=== PATIENT | female | born 1950 | race Caucasian/White ===

== ENCOUNTER 2020-05-14 15:45 | Emergency (ER) | payer BC, OTHER ==
--- OUTSIDE RECORDS SUMMARY | 2020-05-14 15:47 | XMS REPORT | Clinical Summary ---
:1950 Author Organization [facility] Address [address] [place] [address] Care Team Providers Name Role Phone Stan Pruitt MD Primary Care Provider Allergies Active Allergy Reactions Severity Noted Date Comments Codeine Phosphate GI Intolerance 07/17/2011 Hydrocodone Itching 05/26/2018 Medications Medication Sig Dispensed Refills Start Date End Date Status escitalopram Take 20 mg 0 Active (LEXAPRO) 20 MG by mouth tablet daily. multivitamin with Take 1 0 Ac tive minerals tablet tablet by mouth nightly. pravastatin Take 20 mg 0 Active (PRAVACHOL) 20 MG by mouth tablet nightly. cholecalciferol, Take 1,000 0 Ac tive vitamin D3, Units by (VITAMIN D3) 1,000 mouth unit tablet nightly. clorazepate Take 3.75 mg 0 Activ e (TRANXENE) 3.75 MG by mouth as tablet needed. losartan-hydrochlo Take 1 0 01/04/2017 Active rothiazide tablet by (HYZAAR) 50-12.5 mouth daily. mg per tablet UNABLE TO FIND Turmeric-Cur 0 Ac tive cumin one tablet at night naproxen Take 220 mg 0 Active (NAPROSYN) 250 MG by mouth as tablet needed for mild pain. calcium carbonate Take by 0 Ac tive (CALCIUM 500 ORAL) mouth. aspirin 325 MG Take 325 mg 0 Act trae tablet by mouth as needed. buPROPion XL Take 1 30 tablet 3 09/22/2019 Discon tinued (WELLBUTRIN XL) tablet (150 0 (N on-compliance) 150 MG 24 hr mg total) by tabletIndications: mouth daily. Moderate episode of recurrent major depressive disorder (HCC) Active Problems Problem Noted Date Anxiety 05/26/2018 Balance problem 05/26/2018 Clumsiness 05/26/2018 Facial pain 05/26/2018 Heart murmur 05/26/2018 Burning or Tingling in arms 05/26/2018 History of rheumatic fever 05/26/2018 Difficulty swallowing 05/26/2018 Weakness in left arm 05/26/2018 History of thyroid disorder 05/26/2018 Encounters Date Type Specialty Care Team Description 01/07/2020 Telephone Consult Neurology Ludwin Cuevas Mixed anxiety and depressive disorder (Primary Dx); MD Ginny DARRIUS (obstructiv e sleep apnea); PLMD (periodic limb movement disorder); Multifactorial cognitive dysfunction 01/07/2020 Travel 12/29/2019 Travel 09/22/2019 Office Visit Neurology Ludwin Cuevas Moderate e pisode of recurrent major depressive disorder (HCC) (Primary Dx); MD Ginny Anxiety disorde r, unspecified type; DARRIUS (obstructiv e sleep apnea); PLMD (periodic limb movement disorder); Multifactorial cognitive dysfunction; Multifactorial gait disorder; Peripheral poly neuropathy; Physical decond itioning after 05/14/2019 Surgical History Surgery Date Site/Laterality Comments HAND SURGERY TONSILLECTOMY AND 08/05/1953 - ADENOIDECTOMY 08/04/1954 TUBAL LIGATION 08/05/1978 - 08/04/1979 BASAL CELL CARCINOMA EXCISION 08/05/2003 - on back 08/04/2004 MASTECTOMY 08/05/2008 - Bilateral Carcinoma in Sit u 08/04/2009 (left breast ) REPLACEMENT TOTAL KNEE Right FLEXIBLE SIGMOIDOSCOPY CHOLECYSTECTOMY 08/05/1999 - 08/04/2000 COLONOSCOPY 2005 hyperplastic, 2011 hyperplastic, 2018 Medical History Medical History Date Comments Osteoarthritis Hypertension Depression Anxiety Hyperlipidemia Stage IA ([id number]) ER+ breast cancer le ft breast diagnosed in 2007 (status post bilateral mastectomy) Chronic neck and back pain History of rheumatic fever as a child PLMD (periodic limb movement disorder) Diverticulosis Fatty liver DARRIUS (obstructive sleep apnea) CPAP CAD (coronary artery disease) Murmur and beginning of hardening of arteries Alcohol consumption binge drinking (now improved) Family History Medical History Relation Name Comments Colon polyps Father Dad Pancreatic cancer Father Dad Passed 2009 Aneurysm Maternal Aunt Stroke Maternal Aunt Down syndrome Maternal Aunt Seizures Maternal Aunt Breast cancer Maternal Grandmother Stroke Maternal Grandmother Atrial fibrillation Mother Dementia Mother age at 82 Depression Mother Migraines Mother Stroke Mother Alzheimer's disease Paternal Aunt Dementia Paternal Aunt Breast cancer Paternal Grandmother Grandmother 194 Alzheimer's disease Paternal Uncle Alzheimer's disease Paternal Uncle Diabetes Son early onset Relation Name Status Comments Father Dad Maternal Aunt Maternal Aunt Maternal Grandmother Mother Paternal Aunt Paternal Aunt Paternal Grandfather Paternal Grandmother Grandmother Paternal Uncle Paternal Uncle Son Alive Social History Tobacco Use Types Packs/Day Years Used Date Former Smoker 1.5 25 12/28/1975 - 0 03/05/2001 Smokeless Tobacco: Never Used Tobacco Cessation: Counseling Given: No Comments: 1 1/2 PPD for 25 yrs Alcohol Use Drinks/Week oz/Week Comments Not Currently Tendency to primitivo e drink Sex Assigned at Date Recorded Female 10/27/2018 12:14 PM CDT Last Filed Vital Signs Vital Sign Reading Time Taken Comments Blood Pressure 113/74 09/22/2019 9:07 AM [employer] Pulse 62 09/22/2019 9:07 AM [employer] Temperature - - Respiratory Rate - - Oxygen Saturation - - Inhaled Oxygen Concentration - - Weight 90.7 kg (200 lb) 01/06/2020 2:37 PM CDT Height 170.2 cm (5' 7") 01/06/2020 2:37 PM CDT Body Mass Index 31.32 01/06/2020 2:37 PM CDT Plan of Treatment Health Maintenance Due Date Last Done Comments BREAST CANCER SCREENING 2000 COLONOSCOPY SCREENING 2000 65+ PNEUMOCOCCAL VACCINE (1 of 1 - PPSV23) 10/10/2015 SHINGLES VACCINES (#2) 01/21/2017 11/21/2016 INFLUENZA VACCINE 03/05/2020 08/31/2017 Results Not on fileafter 05/14/2019 Insurance Payer Benefit Plan / Subscriber ID Effective Dates Phone Addre ss Type Group HUMANA MEDICARE HUMANA MEDICARE [id number] 2016-Present PPO PPO/PFFS/ERS MCR Advance Directives For more information, please contact: [phone] Type Date Recorded 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
--- OUTSIDE RECORDS SUMMARY | 2020-05-14 15:48 | XMS REPORT | Continuity of Care Document ---
:1950 Author Organization [facility] t Address [address] [place] [address] Care Team Providers Name Role Phone Sparkle MACKAY, L. Primary Care Physician Mason MACKAY, Ginny Attending Clinician SPARKLE Attending Clinician Unavailable HEMA Attending Clinician Unavailable Payers Payer Name Policy Type Policy Effective Date Expiration Date [facility] ce Number HUMANA [id number] 2016 [place] MEDICAREHUMANA 00:00:00 [place] MEDICARE PPO/PFFS/ERS [id number] 2016 -PresentPPO Problems Condition Condition Condition Status Onset Resolution Last Treating Co mments Source Name Details Category Date Date Treatment Clinician Date Anxiety Anxiety Disease Active 2017-08 [place] 0-22 Methodi 00:00: st 00 Balance Balance Disease Active 2017-08 [place] problem problem 0-22 Methodi 00:00: st 00 Clumsiness Clumsiness Disease Active 2018 [place] 0-22 Methodi 00:00: st 00 Facial Facial Disease Active 2017-08 [place] pain pain 0-22 Methodi 00:00: st 00 Heart Heart Disease Active 2017-08 [place] murmur murmur 0-22 Methodi 00:00: st 00 Burning or Burning or Disease Active 2017-08 [place] Tingling Tingling 0-22 Method i in arms in arms 00:00: st 00 History of History of Disease Active 2018- [place] rheumatic rheumatic 0-22 Meth letty fever fever 00:00: st 00 Difficulty Difficulty Disease Active 2017-08 [place] swallowing swallowing 0-22 Me thodi 00:00: st 00 Weakness Weakness Disease Active 2017-08 [place] on in left in left 0-22 Methodi arm arm 00:00: st 00 History of History of Disease Active 2018- [place] thyroid thyroid 0-22 Methodi disorder disorder 00:00: st 00 History of History of Problem Resolve Univers Bilateral Bilateral d ity of malignant malignant [place] neoplasm neoplasm Physic i of breast of breast ans in female, in female, unspecifie unspecifie d site of d site of breast breast Acute pain Acute pain Problem Active U nivers of right of right ity of knee knee [place] Physici ans Obesity Obesity Problem Active Univers due to due to ity of excess excess [place] calories, calories, Phys ici unspecifie unspecifie an s d obesity d obesity severity severity Hyperlipid Hyperlipid Problem Active U nivers emia emia ity of [place] Physici ans Essential Essential Problem Active Uni vers hypertensi hypertensi it y of on, on, [place] hypertensi hypertensi Ph ysici on with on with ans unspecifie unspecifie d goal d goal Depressed Depressed Problem Active Uni vers ity of [place] Physici ans Fatigue Fatigue Problem Active Univers ity of [place] Physici ans Low Low Problem Active Univers vitamin D vitamin D ity of level level [place] Physici ans Hypertensi Hypertensi Problem Active U nivers on on ity of [place] Physici ans Aftercare Aftercare Problem Active Uni vers following following ity of right knee right knee [place] [facility] Physici replacemen replacemen an s t surgery t surgery Status Status Problem Active Univers post total post total it y of right knee right knee [place] replacemen replacemen Ph ysici t using t using ans cement cement History of History of Problem Resolve Univers hyperlipid hyperlipid d it y of emia emia [place] Physici ans History of History of Problem Resolve Univers sleep sleep d ity of apnea apnea [place] Physici ans Primary Primary Problem Active Univers osteoarthr osteoarthr it y of itis of itis of [place] both knees both knees Ph ysici ans Greater Greater Problem Active Univers trochanter trochanter it y of ic ic [place] bursitis bursitis Physic i of left of left ans hip hip Hyperglyce Hyperglyce Problem Active U nivers 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 of [place] Physici ans History of History of Problem Active U nivers cigarette cigarette ity of smoking smoking [place] Physici ans UTI UTI Problem Active Univers (urinary (urinary ity of tract tract [place] infection) infection) Ph ysici ans Pain in Pain in Problem Active Univers the the ity of abdomen abdomen [place] Physici ans Allergy Allergy Problem Active Univers ity of [place] Physici ans Abdominal Abdominal Problem Active Uni vers fullness fullness ity of [place] Physici ans History of History of Problem Active U nivers breast breast ity of cancer cancer [place] Physici ans Former Former Problem Active Univers smoker smoker ity of [place] Physici ans Allergies, Adverse Reactions, Alerts Allergy Allergy Status Severity Reaction(s) Onset Inactive Treating Comm ents Source Name Type Date Date Clinician Hydrocod Propensi Active Itching 2017-08 [place] on one ty to 0-22 Methodi adverse 00:00: st reaction 00 s to drug Codeine Propensi Active GI 2010-08 [place] Phosphat ty to Intolerance 2-13 Met hodi e adverse 00:00: st reaction 00 s to drug Family History Family Member Diagnosis Comments Start Date Stop Date Source Mother Family history of Univers ity of Essential [place] Physicia ns hypertension, hypertension with unspecified goal Mother Family history of Univers ity of Other hyperlipidemia [place] Physicians Mother Family history of Univers ity of depression [place] Physicia ns Mother Family history of Univers ity of Stroke of unknown [place] P hysicians cause Father Family history of Univers ity of Essential [place] Physicia ns hypertension, hypertension with unspecified goal Father Family history of Univers ity of arthritis [place] Physicia ns Father Family history of Univers ity of malignant neoplasm [place] Physicians Natural father Colon polyps Prateek [place] Natural father Pancreatic cancer Rudy stodustin [place] Maternal aunt Aneurysm Prateek [place] Maternal aunt Stroke Prateek [place] Maternal aunt Down syndrome Prateek [place] Maternal aunt Seizures Prateek [place] Maternal Breast cancer Prateek grandmother [place] Maternal Stroke Prateek grandmother [place] Natural mother Atrial fibrillation H [place] Natural mother Dementia Prateek [place] Natural mother Depression Prateek [place] Natural mother Migraines Prateek [place] Natural mother Stroke Prateek [place] Paternal aunt Alzheimer's disease Ho abbie [place] Paternal aunt Dementia Prateek [place] Paternal Breast cancer Prateek grandmother [place] Paternal uncle Alzheimer's disease H hayder [place] Natural son Diabetes Prateek [place] Social History Social Habit Start Date Stop Date Quantity Comments Source Sex Assigned At [facility] ethodist Cigarettes smoked 2020-01-06 2020-01-06 Prateek Kuo current (pack per 00:00:00 00:00:00 day) - Reported Cigarette 2020-01-06 2020-01-06 Prateek Dillard ist pack-years 00:00:00 00:00:00 Tobacco use and 2020-01-06 2020-01-06 Never used Prateek Sandoval ethodist exposure 00:00:00 00:00:00 Alcohol intake 2020-01-06 2020-01-06 Ex-drinker Prateek Brooks thodist 00:00:00 00:00:00 (finding) Alcohol Comment 2019-03-16 2019-03-16 Tendency to Prateek [place] 00:00:00 00:00:00 binge drink Tobacco Comment 2018-05-26 2018-05-26 1 1/ PPD for 25 Rudy leong [place] 00:00:00 00:00:00 yrs History of tobacco 1975-12-28 2001-03-05 Current smoker Alejo leiva [place] use 00:00:00 00:00:00 Smoking Status Start Date Stop Date Source Current every day [facility] smoker Physicians Former smoker 2020-01-06 00:00:00 2020-01-06 00:00:00 Prateek Kuo Medications Ordered Filled Start Stop Current Ordering Indication Dosage Frequency Signature Comments Components Source Medication Medication Date Date Medication? Clinician (SIG) Name Name aspirin 325 2020-0 Yes 325mg Take 325 [place] MG tablet 6-03 mg by Methodi 14:42: mouth as st 41 needed. escitalopra 2020-0 Yes 20mg QD Take 20 mg Prateek sandoval (LEXAPRO) 6-03 by mouth Meth letty 20 MG 14:42: daily. st tablet 00 multivitami 2020-0 Yes 1{tbl} QD Take 1 Alejo leiva n with 6-03 tablet by Methodi minerals 14:42: mouth st tablet 00 nightly. pravastatin 2020-0 Yes 20mg QD Take 20 mg Chandra (PRAVACHOL) 6-03 by mouth Meth letty 20 MG 14:42: nightly. st tablet 00 cholecalcif 2020-0 Yes 1000U QD Take 1,000 Chandra shai, 6-03 Units by Methodi vitamin D3, 14:42: mouth st (VITAMIN 00 nightly. D3) 1,000 unit tablet clorazepate 2020-0 Yes 3.75mg Take 3.75 Chandra (TRANXENE) 6-03 mg by Methodi 3.75 MG 14:42: mouth as st tablet 00 needed. UNABLE TO 2020-0 Yes Turmeric-C [place] FIND 6-03 urcumin Methodi 14:42: one tablet st 00 at night naproxen Yes 220mg Take 220 [place] (NAPROSYN) 6-03 mg by Methodi 250 MG 14:42: mouth as st tablet 00 needed for mild pain. calcium Yes Take by Chandra carbonate 6-03 mouth. 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 ([facility]) Tumersaid Tumersaid 2017-08 Yes QD TAKE 1 U nivers Oral Tablet Oral Tablet 0-01 TABLET ity of 00:00: DAILY [place] DIRECTED. Physici ans Vitamin D3 Vitamin D3 2017-08 Yes 1 QD TAKE 1 Univers 1000 UNIT 1000 UNIT 0-01 TABLET ity of Oral Tablet Oral Tablet 00:00: DAILY. [place] 00 Physici ans Pravastatin Pravastatin Yes LE TAKE 1 Univers Sodium 20 Sodium 20 01-04 SPARKLE TABLET AT ity of MG Oral MG Oral 00:00: M.D. BEDTIME. Abdiaziz as Tablet Tablet 00 Physici ans Losartan Losartan Yes LE QD TAKE 1 U nivers Potassium-H Potassium-H 01-04 SPARKLE TABLET BY ity of CTZ 50-12.5 CTZ 50-12.5 00:00: M.D. MOUTH ONCE [place] MG Oral MG Oral 00 A DAY. Physici Tablet Tablet ans Escitalopra Escitalopra Yes LE 1 QD TAKE 1 Univers m Oxalate m Oxalate 01-04 SPARKLE TABLET ity of 20 MG Oral 20 MG Oral 00:00: M.D. DAILY. [place] Tablet Tablet 00 Physici ans losartan-hy Yes 1{tbl} QD Take 1 Ho abbie drochloroth 02 tablet by Met baldo paul 00:00: mouth st (HYZAAR) 00 daily. 50-12.5 mg per tablet Clorazepate Clorazepate Yes LE Sig one Univers Dipotassium Dipotassium SPARKLE tab daily ity of 3.75 MG 3.75 MG M.D. [place] Oral Tablet Oral Tablet P hysici ans Immunizations Ordered Filled Date Status Comments Source Immunization Name Immunization Name Fluzone High-Dose 2017-08-31 Completed Univers ity of 0.5 ML 00:00:00 [place] Physicia ns Intramuscular Suspension Prefilled Syringe Zoster (Zostavax) 2016-11-21 Completed Univers ity of 00:00:00 [place] Physicia ns tetanus toxoid, Unknown Completed Universit y of unspecified [place] Physici ans formulation Vital Signs Vital Name Observation Time Observation Value Comments Source Body height 2020-01-06 170.2 cm [place] 14:37:00 [place] Body weight 2020-01-06 90.719 kg [place] 14:37:00 [place] BMI 2020-01-06 31.32 kg/m2 [place] 14:37:00 [place] Systolic blood 2019-09-22 113 mm[Hg] [place] pressure 09:07:00 [place] Diastolic blood 2019-09-22 74 mm[Hg] [place] pressure 09:07:00 [place] Heart rate 2019-09-22 62 /min [place] 09:07:00 [place] BP Systolic 2019-05-04 136 mm[Hg] Location: [facility] 15:18:00 Position: [place] Physician s Sitting BP Diastolic 2019-05-04 77 mm[Hg] Location: [facility] 15:18:00 Position: [place] Physician s Sitting Height 2019-05-04 68 [in_us] [facility] 15:18:00 [place] Physician s Weight 2019-05-04 198 [lb_av] [facility] 15:18:00 [place] Physician s Body Mass Index 2019-05-04 30.11 kg/m2 [place] o f Calculated 15:18:00 [place] Physician s Heart Rate 2019-05-04 81 /min Location: R [facility] 15:18:00 Brachial [place] Physician s Artery; Quality: Regular O2 SAT 2019-05-04 98 % Source: RA [facility] 15:18:00 [place] Physician s BP Systolic 2018-05-05 113 mm[Hg] Location: [facility] 15:19:00 Position: [place] Physician s Sitting BP Diastolic 2018-05-05 71 mm[Hg] Location: [facility] 15:19:00 Position: [place] Physician s Sitting Height 2018-05-05 68 [in_us] [facility] 15:19:00 [place] Physician s Weight 2018-05-05 198 [lb_av] University 15:19:00 [place] Physician s Body Mass Index 2018-05-05 30.11 kg/m2 University o f Calculated 15:19:00 [place] Physician s Temperature 2018-05-05 98.5 [degF] Method: Oral University 15:19:00 [place] Physician s Heart Rate 2018-05-05 57 /min Location: [facility] 15:19:00 Brachial [place] Physician s Artery; Quality: Normal Height 2018-04-09 68 [in_us] [facility] 13:37:00 [place] Physician s Weight 2018-04-09 204 [lb_av] [facility] 13:37:00 [place] Physician s Body Mass Index 2018-04-09 31.02 kg/m2 University o f Calculated 13:37:00 [place] Physician s Procedures Procedure Date / Time Performing Clinician Source Performed [QL] CMP W/EGFR 2019-05-04 00:00:00 [facility] Physicians [[facility]] CBC (INCLUDES 2019-05-04 00:00:00 [facility] DIFF/PLT) Physicians [QL] LIPID PANEL 2019-05-04 00:00:00 [facility] Physicians [[facility]] THYROID PANEL 2019-05-04 00:00:00 [facility] Physicians [[facility]] VITAMIN D, 2019-05-04 00:00:00 [facility] 25-HYDROXY, LC/MS/MS Physicians [[facility]] TSH, 3RD GENERATION 2019-05-04 00:00:00 Un [facility] Physicians [[facility]] URINALYSIS, 2019-05-04 00:00:00 [facility] COMPLETE Physicians [U] XRAY CHEST 2 VWS 2019-05-04 00:00:00 [facility] [id number] Physicians US Abdomen complete [id number] 2019-05-04 00:00:00 Un [facility] Physicians [[facility]] CULTURE, URINE, 2018-05-06 00:00:00 [facility] ROUTINE Physicians US Abdomen complete [id number] 2018-05-06 00:00:00 Un [facility] Physicians [[facility]] VITAMIN D, 2018-05-05 00:00:00 [facility] 25-HYDROXY, LC/MS/MS Physicians [[facility]] HEMOGLOBIN A1c 2018-05-05 00:00:00 [facility] Physicians [QLH] URINALYSIS, 2018-05-05 00:00:00 [facility] COMPLETE Physicians [QLH] TSH, 3RD GENERATION 2018-05-05 00:00:00 Un [facility] Physicians XRAY Chest 2 views [id number] 2018-05-05 00:00:00 Uni [facility] Physicians [U] XRAY KNEE 3 VWS RIGHT 2018-04-03 00:00:00 Un [facility] [id number] Physicians History of Tonsillectomy [facility] Physicians History of Tubal Ligation [facility] Physicians History of Breast [facility] Lumpectomy Location Physicians History of Cholecystotomy [facility] Physicians History of Orthopedic [facility] Surgery Right Hand Physicians History of Orthopedic [facility] Surgery Left Hand Physicians History of Breast Surgery [facility] Reconstruction Physicians History of Breast Surgery [facility] Mastectomy Physicians History of Total Knee [facility] Replacement Right Physicians History of Surgery [facility] Excision Lipoma Physicians Plan of Care Planned Activity Planned Date Details Comments Source Future Scheduled 2020-03-05 INFLUENZA VACCINE [place] Test 00:00:00 [code = INFLUENZA VACCINE] Diagnostic Test 2019-05-11 [QLH] CMP W/EGFR [facility] Pending 00:00:00 [code = [QLH] CMP Physicians W/EGFR] Diagnostic Test 2019-05-11 [QLH] CBC (INCLUDES [facility] Pending 00:00:00 DIFF/PLT) [code = Physicians [QLH] CBC (INCLUDES DIFF/PLT)] Diagnostic Test 2019-05-11 [QLH] LIPID PANEL [facility] Pending 00:00:00 [code = [QLH] LIPID Physicia ns PANEL] Diagnostic Test 2019-05-11 [QLH] THYROID PANEL [facility] Pending 00:00:00 [code = [QLH] THYROID Physic ians PANEL] Diagnostic Test 2019-05-11 [QLH] VITAMIN D, [facility] Pending 00:00:00 25-HYDROXY, LC/MS/MS Physici ans [code = [QLH] VITAMIN D, 25-HYDROXY, LC/MS/MS] Diagnostic Test 2019-05-11 [QLH] TSH, [address] [place] [address] Pending 00:00:00 GENERATION [code = Physician s [QLH] TSH, 3RD GENERATION] Diagnostic Test 2019-05-11 [QL] URINALYSIS, [facility] [place] Pending 00:00:00 COMPLETE [code = Physicians [QL] URINALYSIS, COMPLETE] Diagnostic Test 2018-05-06 US Abdomen complete Unive rsity [facility] Pending 00:00:00 [id number] [code = 24844] Physici ans Diagnostic Test 2018-05-06 [QLH] CULTURE, URINE, Uni versity of [place] Pending 00:00:00 ROUTINE [code = [QL] Physic ians CULTURE, URINE, ROUTINE] Future Scheduled 2017-01-21 SHINGLES VACCINES [place] Test 00:00:00 (#2) [code = SHINGLES VACCINES (#2)] Future Scheduled 2015-10-10 65+ PNEUMOCOCCAL [place] [facility] Test 00:00:00 VACCINE (1 of 1 - PPSV23) [code = 65+ PNEUMOCOCCAL VACCINE (1 of 1 - PPSV23)] Future Scheduled 2000 BREAST CANCER [facility] thodist Test 00:00:00 SCREENING [code = BREAST CANCER SCREENING] Future Scheduled 2000 COLONOSCOPY SCREENING [facility] Mosque Test 00:00:00 [code = COLONOSCOPY SCREENING] Encounters Start End Encounter Admission Attending Care Care Encounter Source Date/Time Date/Time Type Type Clinicians Facility Department ID 2020-01-07 2020-01-07 Outpatient [facility] [id number] [place] 00:00:00 00:00:00 GALA 497 Metho di 2019-05-04 2019-05-04 AppointCHRISTEL Faria [facility] [id number] Univers 13:30:00 13:30:00 t; John LUJAN M.D. [place] Alfonso LUJAN M.D. ans 2018-05-05 2018-05-05 AppointCHRISTEL Faria [place] [id number] [facility] 13:30:00 13:30:00 t; Alexander LUJAN M.D. [facility] Alfonso LUJAN M.D. ans 2018-04-09 2018-04-09 AppointCHRISTEL [place] [facility] [id number] Univers 13:00:00 13:00:00 t; Brayan DENISE Ortho and ity of HEMA, Spine [facility] Elena DENISE M.D. [place] ans 2017-02-07 2017-02-07 Appointmen [place] CHRISTEL UTP [id number] Univers 09:00:00 09:00:00 t; Eveline LUJAN M.D. [place] Alfonso LUJAN M.D. ans 2017-01-17 2017-01-17 Appointmen CHRISTEL VILLAGRAN UTP [id number] Univers 10:00:00 10:00:00 t; Eveline LUAJN M.D. [place] Alfonso LUJAN M.D. ans 2017-01-15 2017-01-15 Appointmen CHRISTEL GARRIDO UTP [id number] Univers 11:00:00 11:00:00 t; Brayan DENISE it y of Shay GARRIDO Physici M.D. ans 2015-11-02 2015-11-02 [facility] CHRISTEL GARRIDO UTP [id number] Univers 13:45:00 13:45:00 t; Brayan DENISE it y of HEMA [place] Alfonso DENISE M.D. ans Results Test Description Test Time Test Comments Results Result [facility] e Comments US Abdomen 2018-05-06 PROCEDURE: [facility] [id number] 5 ABDOMINAL [place] 10:37:00 ULTRASOUNDINDICATIO Physi [facility] N: R10.9 Unspecified abdominal pain -COMPARISON: None.FINDINGS:LIVER :Evidence of diffuse hepatic steatosis. No focal hepatic abnormality.Doppler demonstrates a normal monophasic hepatopedal waveform within the mainportal vein.GALLBLADDER:Th e gallbladder is absent.BILE DUCTS:No significant intrahepatic or extrahepatic biliary ductal dilation isapparent.The CBD measures 5 mm.PANCREAS:The visualized pancreas is unremarkable.SPLEEN :The spleen is normal.KIDNEYS:Norm al size, contour and echogenicity without hydronephrosis.Simp le cyst at the lower pole of the left kidney, 6.1 cm.Nonobstructing calculus at the lower pole of left kidney measures approximately9 mm.AORTA AND INFERIOR VENA CAVA:Mild atheromatous irregularity within the abdominal aorta. No aneurysm. Visiblesegments of the IVC are unremarkable.Additi onal comments: None.IMPRESSION:1. Mild hepatic steatosis.2. Cholecystectomy.3. Left renal cyst, 6.1 cm.4. Left nephrolithiasis.SL: [id number]--Vazk by: Atul Honeycutt MDDictated Date/time: 05/29/18 11:59Electronically Signed by: Atul Honeycutt MD 05/29/1812:01FINAL REPORT [[facility]] CULTURE, URINE, ROUTINE 2018-05-08 10:50:00 Test Item Value Reference Range Interpretation Comme nts CULTURE (test code = CULTURE) See Comment A CULTURE, URINE, ROUTINE MICRO NUMBER: [id number] TEST STATUS: FINAL SPECIM EN SOURCE: URINE, CLEAN CATCH SP ECIMEN QUALITY: ADEQUATE RESUL T: 10,000-50,000 C FU/mL of Enterococcus species COMMEN T: Additional organism(s) les s than 10,000 CFU/mL isolated. These organisms, comm only found on consumer loan processor al and internal genitalia, are considered colonizer s. No further testing performed. Enterococcus sp . --- INT RAFAEL AMPICILLIN S <=2 CIP ROFLOXACIN S 1 LEVOFLOXAC IN S 1 NITROFURANTOIN S <=16 TETRACYCLINE R >=16 VANCOMYCIN S 1S=Susceptible I=Intermediate R=Resistant * = Not TestedNR = Not Reported NN = See Therapy Comments [facility] PhysiciansX[facility] Chest 2 views [id number] 15:42:00EXAM: XR CHEST 2 VIEWSDATE: 05/05/2018 3:42 PM CDTINDICATION: Z00.00 Encounter for general adult medical examination withoutabnormal findings - smokerCOMPARISON: 02/07/2017TECHNIQUE: PA and lateral chest radiographsFINDINGS: No lung parenchymal or pleural abnormalities are seen. Josie andpulmonary vasculature are normal. Cardiomediastinal silhouette is normal inappearance. No acute bony abnormality is identified. Multilevel spondylosis isseen in the thoracic spine with mild dextroscoliosis.IMPRESSION: No acute cardiopulmonary abnormality. No significant change from02/07/2017.--Read by: Henri Isidro MDDictated Date/time: 05/05/18 15:56Electronically Signed by: Henri Isidro MD 05/05/1815:57FINAL REPORTUnIntermountain Medical Center Physicians[[facility]] TSH, 3RD [id number] 15:07:01 Test Item Value Reference Range Interpretation Comments TSH (test code = 77546-5) 1.020 {uIU/ml} 0.360-3.740 [facility]] URINALYSIS, [id number] 15:07:01 Test Item Value Reference Range Interpretation Comments UA Turbidity; Abnormal (test code Slight Clear A = 05096-8) UA Spec Grav (test code = 5810-7) 1.006 <=1.030 UA pH (test code = 5803-2) 6.0 5.0-8.0 UA Protein (test code = 78483-5) Negative Negative UA Glucose (test code = 70873-8) Negative Negative UA Ketones (test code = 93869-0) Negative Negative UA Bili (test code = 5770-3) Negative Negative UA Blood; Abnormal (test code = Small Negative A 5794-3) UA Nitrite (test code = 5802-4) Negative Negative UA Leuk Est; Abnormal (test code = Large Negative A 5799-2) UA RBC (test code = 09077-0) 2 {/HPF} 0-2 UA WBC; Above High Threshold (test 48 {/HPF} 0-5 code = 88311-1) UA Bacteria (test code = 04300-4) Occasional None Seen UA Mucus (test code = 8247-9) Few None Seen UA Sq Epi; Abnormal (test code = Moderate Few A 93940-2) UA Color (test code = 5778-6) Ltyellow UROBILINOGEN (test code = 99825-0) <=1.0 0.1-1.0 [facility]] HEMOGLOBIN [id number] 15:07:01 Test Item Value Reference Range Interpretation Comments Hemoglobin A1c; Above High Threshold 5.7 % <=5.6 (test code = 4548-4) [facility]] VITAMIN D, 25-HYDROXY, LC/MS/[id number] 15:07:01 Test Item Value Reference Range Interpretation Comments Vitamin D, 25-OH, 37.5 ng/ml 30.0-100.0 Reference range is based Total (test code on recommen dations in the = Vitamin D, EndocrineSociet y Clinical 25-OH, Total) Practice Guide line (J Clin Endocrinol Suqyb4810;96:19 11-1930) [facility] Physicians[U] XRAY KNEE 3 VWS RIGHT [id number] 08:18:00 Images acquired, not reported on this accession number.[facility]
--- NOTE | 2020-05-14 17:11 | RAD REPORT ---
EXAM DESCRIPTION: CT - Head Brain Wo Cont - 05/14/2020 5:03 pm CLINICAL HISTORY: Headache COMPARISON: 2017 TECHNIQUE: Computed axial tomography of the head was obtained. IV contrast was not requested. All CT scans are performed using dose optimization technique as appropriate and may include automated exposure control or mA/KV adjustment according to patient size. FINDINGS: Some of the images are degraded by patient motion artifact An intracranial bleed is not seen . The ventricles are normal in caliber. No extra-axial fluid collection is noted. Fluid within the sinuses/ mastoids is not seen. IMPRESSION: Grossly normal unenhanced head CT. If patient's symptoms persist MRI of the brain would be recommended.
[2020-05-14 17:14] LABS: Urine Blood TRACE (NEG); Urine Glucose NEGATIVE (NEG); Urine Protein NEGATIVE (NEG); Urine Specific Gravity 1.015 (1.005-1.030); Urine pH 5.5 (5.0-7.0)
[2020-05-14 17:52] LABS: Absolute Lymphocytes (CBC) 2.3 K/uL (0.7-4.9); Basophils % 0.4 % (0-1.3); Hematocrit 41.5 % (36.0-45.0); Lymphocytes % 14.7 % (15.3-44.8); MPV 8.5 fL (7.6-11.3); RBC Red Blood Cell Count 4.47 M/uL (3.86-4.86)
[2020-05-14] MEDS ORDERED: CIPROFLOXACIN HCL 500 MG TAB ONE (17:56)
[2020-05-14] MEDS ORDERED: CEFTRIAXONE/SWI 1gm 1 GM/10 ML SYR ONE (17:56)
[2020-05-14] MEDS ORDERED: ACETAMINOPHEN 500 MG TAB ONE (17:56)
[2020-05-14] MEDS ORDERED: NA CHLORIDE 0.9% 1,000 ML ONE (17:56)
[2020-05-14 18:09] LABS: Albumin 3.5 g/dL (3.4-5.0); Bilirubin Total 0.4 mg/dL (0.2-1.0); Potassium 3.7 mmol/L (3.5-5.1); Protein, Total 7.6 g/dL (6.4-8.2)
--- NOTE | 2020-05-14 18:16 | RAD REPORT ---
EXAM DESCRIPTION: Veronica Jerry And Isadora (2 Views)05/14/2020 5:51 pm CLINICAL HISTORY: Cough COMPARISON: None FINDINGS: The lungs are hyperaerated. The lungs appear clear of acute infiltrate. The heart is normal size IMPRESSION: No acute abnormalities displayed
--- NOTE | 2020-05-14 18:40 | ER ---
Nurse's Notes [facility] Name: Melva Cummings Age: 69 yrs Sex: Female : 1950 Arrival Date: 05/14/2020 Time: 15:51 Bed 17 Private MD: Diagnosis: Fever, unspecified-sp influenza/ pneumovac immunizations;Headache;Malaise and fatigue;Urinary tract infection, site not specified;Pain in left arm-sp immumizations, local reaction;Elevated white blood cell count Presentation: 05/14 15:55 Chief complaint: Patient states: Got flu shot to left arm . Pain and swelling ll1 to left arm since Saturday. Fever, SHERIDAN, body aches also. Coronavirus screen: Client denies travel out of the [place] in the last 14 days. chills, fatigue, fever, headache, Client presents with at least one sign or symptom that may indicate coronavirus-19. Standard/surgical mask placed on the client. Ebola Screen: Patient denies travel to an Ebola-affected area in the 21 days before illness onset. Initial Sepsis Screen: Does the patient meet any 2 criteria? Temp <36.0*C (96.8*F)) or > 38.3*C (100.9*F). HR > 90 bpm. Yes Does the patient have a suspected source of infection? Yes: Other: SHERIDAN. Risk Assessment: Do you want to hurt yourself or someone else? Patient reports no desire to harm self or others. Onset of symptoms was May 13, 2020. 15:55 Method Of Arrival: Ambulatory ll1 15:55 Acuity: DONIS 2 ll1 Historical: - Allergies: 15:58 Codeine; ll1 - PMHx: 15:58 Anxiety; High Cholesterol; Hypertension; ll1 - PSHx: 15:58 Mastectomy, Right; Mastectomy, Left; Tubal ligation; Cholecystectomy; R knee ll1 replacement; - Immunization history:: Flu vaccine is up to date. - Social history:: Smoking status: Patient denies any tobacco usage or history of. Screenin:00 Abuse screen: Denies threats or abuse. Denies injuries from another. Nutritional ss screening: No deficits noted. Tuberculosis screening: Never had TB. Fall Risk None identified. Assessment: 17:12 Reassessment: Pt in XRAY at this time. Awaiting for return to obtain lab specimens. Vital Signs: 15:55 Pulse 99; Resp 18; Temp 100.8; Pulse Ox 97% ; Weight 90.72 kg; Height 5 ft. 7 in. ll1 (170.18 cm); Pain 3/10; 15:59 BP 134 / 63; ll1 18:06 BP 122 / 58; Pulse 88; Resp 17; Pulse Ox 100% on R/A; ss 18:51 BP 124 / 80; Pulse 85; Temp 100(O); ss 15:55 Body Mass Index 31.32 (90.72 kg, 170.18 cm) ll1 [place] Coma Score: 16:42 Eye Response: spontaneous(4). Verbal Response: oriented(5). Motor Response: obeys aisha commands(6). Total: 15. ED Course: 15:51 Patient arrived in ED. mr 15:57 Triage completed. 1 15:59 Arm band placed on Patient placed in an exam room, on a stretcher. 1 16:03 Dae Ambrose MD is Attending Physician[facility] 16:20 Key De Los Santos RN is Primary Nurse. ss 17:00 Patient has correct armband on for positive identification. Bed in low position. Call ss light in reach. Side rails up X 1. 17:00 Urine collected: clean catch specimen, clear. ss 17:02 CT Head Brain wo Cont In Process Unspecified. EDMS 17:35 Initial lab(s) drawn, by az, sent to lab. First set of blood cultures drawn by az. 3 Inserted saline lock: 20 gauge in right forearm, using aseptic technique. Blood collected. 17:39 Second set of blood cultures drawn by az. 3 17:52 Chest Pa And Lat (2 Views) XRAY In Process Unspecified. EDMS 19:06 No provider procedures requiring assistance completed. IV discontinued, intact, ss bleeding controlled, No redness/swelling at site. Pressure dressing applied. Administered Medications: 17:52 Drug: Tylenol 1000 mg Route: PO; ss 18:55 Follow up: Response: No adverse reaction; Temperature is decreased ss 17:55 Drug: NS 0.9% 1000 ml Route: IV; Rate: 1000 ml; Site: right forearm; ss 18:50 Follow up: IV Status: Completed infusion; IV Intake: 1000ml 17:58 Drug: Rocephin 1 grams Route: IV; Rate: per protocol; Site: right forearm; ss 18:00 Follow up: IV Status: Completed infusion ss 18:01 Drug: Cipro 500 mg Route: PO; ss 18:55 Follow up: Response: No adverse reaction ss 18:55 Drug: Motrin 800 mg Route: PO; ss 19:06 Follow up: Response: Medication administered at discharge. ss Intake: 18:50 IV: 1000ml; Total: 1000ml. Outcome: 18:39 Discharge ordered by . aisha 19:06 Discharged to home ambulatory. 19:06 Condition: good 19:06 Discharge instructions given to patient, Instructed on discharge instructions, follow up and referral plans. medication usage, Demonstrated understanding of instructions, follow-up care, medications, Prescriptions given X 1. 19:07 Patient left the ED. Signatures: Dispatcher [employer] EDMS Dae Ambrose MD MD cha Rivera, Key Jacome RN RN Stephanie [facility] Leigh Ayoub RN RN ll1 Corrections: (The following items were deleted from the chart) 18:03 17:55 NS 0.9% 1000 ml IV at 1000 ml in right antecubital ss 18:03 17:58 Rocephin 1 grams IV at per protocol in right antecubital ss
--- NOTE | 2020-05-14 18:40 | EDPHYS ---
Physician Documentation [facility] Name: Melva Cummings Age: 69 yrs Sex: Female : 1950 Arrival Date: 05/14/2020 Time: 15:51 Bed 17 Private MD: ED Physician Dae Ambrose HPI: 05/14 16:38 This 69 yrs old Female presents to ER via Ambulatory with complaints of Arm aisha Pain, Fever, Headache. 16:38 The patient or guardian complains of pain, swelling. The complaints affect the left aisha bicep. Context: The problem was sustained at a doctors office , flu and pneumovac . Onset: The symptoms/episode began/occurred 3 day(s) ago. Treatment prior to arrival includes: aspirin. Modifying factors: The symptoms are alleviated by remaining still, the symptoms are aggravated by movement. Historical: - Allergies: 15:58 Codeine; ll1 - PMHx: 15:58 Anxiety; High Cholesterol; Hypertension; ll1 - PSHx: 15:58 Mastectomy, Right; Mastectomy, Left; Tubal ligation; Cholecystectomy; R knee ll1 replacement; - Immunization history:: Flu vaccine is up to date. - Social history:: Smoking status: Patient denies any tobacco usage or history of. ROS: 16:40 Eyes: Negative for injury, pain, redness, and discharge, ENT: Negative for injury, aisha pain, and discharge, Neck: Negative for injury, pain, and swelling, Cardiovascular: Negative for chest pain, palpitations, and edema, Respiratory: Negative for shortness of breath, cough, wheezing, and pleuritic chest pain, Abdomen/GI: Negative for abdominal pain, nausea, vomiting, diarrhea, and constipation, Back: Negative for injury and pain, : Negative for injury, bleeding, discharge, and swelling, MS/Extremity: Negative for injury and deformity, Skin: Negative for injury, rash, and discoloration, Psych: Negative for depression, anxiety, suicide ideation, homicidal ideation, and hallucinations, Allergy/Immunology: Negative for hives, rash, and allergies, Endocrine: Negative for neck swelling, polydipsia, polyuria, polyphagia, and marked weight changes. 16:40 Constitutional: Positive for body aches, chills, fatigue, fever. 16:40 Neck: Negative for pain with movement, pain at rest. Exam: 16:40 Head/Face: Normocephalic, atraumatic. Eyes: Pupils equal round and reactive to light, aisha extra-ocular motions intact. Lids and lashes normal. Conjunctiva and sclera are non-icteric and not injected. Cornea within normal limits. Periorbital areas with no swelling, redness, or edema. ENT: Nares patent. No nasal discharge, no septal abnormalities noted. Tympanic membranes are normal and external auditory canals are clear. Oropharynx with no redness, swelling, or masses, exudates, or evidence of obstruction, uvula midline. Mucous membranes moist. Neck: Trachea midline, no thyromegaly or masses palpated, and no cervical lymphadenopathy. Supple, full range of motion without nuchal rigidity, or vertebral point tenderness. No Meningismus. Chest/axilla: Normal chest wall appearance and motion. Nontender with no deformity. No lesions are appreciated. Cardiovascular: Regular rate and rhythm with a normal S1 and S2. No gallops, murmurs, or rubs. Normal PMI, no JVD. No pulse deficits. Respiratory: Lungs have equal breath sounds bilaterally, clear to auscultation and percussion. No rales, rhonchi or wheezes noted. No increased work of breathing, no retractions or nasal flaring. Abdomen/GI: Soft, non-tender, with normal bowel sounds. No distension or tympany. No guarding or rebound. No evidence of tenderness throughout. Back: No spinal tenderness. No costovertebral tenderness. Full range of motion. Female : Normal external genitalia. Skin: Warm, dry with normal turgor. Normal color with no rashes, no lesions, and no evidence of cellulitis. Neuro: Awake and alert, GCS 15, oriented to person, place, time, and situation. Cranial nerves II-XII grossly intact. Motor strength 5/5 in all extremities. Sensory grossly intact. Cerebellar exam normal. Normal gait. Psych: Awake, alert, with orientation to person, place and time. Behavior, mood, and affect are within normal limits. 16:40 Constitutional: The patient appears febrile. 16:40 Neck: ROM/movement: is normal, no acute changes, Meningeal signs: are not present, Kernig's sign is negative, Brudzinski's sign is negative. 16:40 Respiratory: the patient does not display signs of respiratory distress, Respirations: normal, Breath sounds: are clear throughout, Respiratory rate: 99 16:40 Musculoskeletal/extremity: ROM: limited active range of motion due to pain, limited passive range of motion due to pain, Circulation is intact in all extremities. Sensation intact. Compartment Syndrome exam of affected extremity: is normal. DVT Exam: negative Homans' sign noted on exam, no appreciated bluish discoloration, pain, swelling, tenderness, erythema, increased warmth, that is mild, of the anterior aspect of left shoulder and posterior aspect of left shoulder. Vital Signs: 15:55 Pulse 99; Resp 18; Temp 100.8; Pulse Ox 97% ; Weight 90.72 kg; Height 5 ft. 7 in. ll1 (170.18 cm); Pain 3/10; 15:59 BP 134 / 63; ll1 18:06 BP 122 / 58; Pulse 88; Resp 17; Pulse Ox 100% on R/A; ss 18:51 BP 124 / 80; Pulse 85; Temp 100(O); ss 15:55 Body Mass Index 31.32 (90.72 kg, 170.18 cm) ll1 [place] Coma Score: 16:42 Eye Response: spontaneous(4). Verbal Response: oriented(5). Motor Response: obeys aisha commands(6). Total: 15. MDM: 16:03 Patient medically screened. aisha 16:42 Differential diagnosis: viral Infection, bacterial infection, bronchitis, pneumonia aisha UTI, meningitis. Data reviewed: vital signs, nurses notes, lab test result(s), radiologic studies, plain films. Data interpreted: detailer: rate is 99 beats/min, rhythm is regular, Pulse oximetry: on room air is 97 %. Test interpretation: by ED physician or midlevel provider: plain radiologic studies. Counseling: I had a detailed discussion with the patient and/or guardian regarding: the historical points, exam findings, and any diagnostic results supporting the discharge/admit diagnosis, lab results, radiology results, the need for outpatient follow up, for definitive care, an ship's officer. 18:35 ED course: dw with patient, no suspicion of meningitis, all related to immunizations, aisha will follow up and return if casey and stiff neck develop. 05/14 16:38 Order name: CBC with Diff; Complete Time: 17:58 aisha 10/10 16:38 Order name: Comprehensive Metabolic Panel; Complete Time: 18:18 [facility] 05/14 16:38 Order name: Blood Culture Adult (2) [facility] 05/14 16:38 Order name: Urine Culture [facility] 05/14 16:38 Order name: Procalcitonin; Complete Time: 18:55 [facility] 05/14 17:05 Order name: Urine Dipstick--Ancillary (enter results); Complete Time: 17:37 05/14 16:38 Order name: Urine Dipstick-Ancillary (obtain specimen); Complete Time: 17:00 [facility] 05/14 16:38 Order name: Chest Pa And Lat (2 Views) XRAY; Complete Time: 18:18 [facility] 05/14 16:38 Order name: CT Head Brain wo Cont; Complete Time: 17:12 [facility] 05/14 18:19 Order name: Vital Signs; Complete Time: 18:55 [facility] 05/14 18:35 Order name: Ice pack; Complete Time: 18:42 [facility] 05/14 19:02 Order name: Misc. Order: tell the patient bye from me please.; Complete Time: 19:06 [facility] Administered Medications: 17:52 Drug: Tylenol 1000 mg Route: PO; ss 18:55 Follow up: Response: No adverse reaction; Temperature is decreased ss 17:55 Drug: NS 0.9% 1000 ml Route: IV; Rate: 1000 ml; Site: right forearm; ss 18:50 Follow up: IV Status: Completed infusion; IV Intake: 1000ml ss 17:58 Drug: Rocephin 1 grams Route: IV; Rate: per protocol; Site: right forearm; ss 18:00 Follow up: IV Status: Completed infusion ss 18:01 Drug: Cipro 500 mg Route: PO; ss 18:55 Follow up: Response: No adverse reaction ss 18:55 Drug: Motrin 800 mg Route: PO; ss 19:06 Follow up: Response: Medication administered at discharge. ss Disposition: 05/14/20 18:39 Discharged to Home. Impression: Fever, unspecified - sp influenza/ pneumovac immunizations, Headache, Malaise and fatigue, Urinary tract infection, site not specified, Pain in left arm - sp immumizations, local reaction, Elevated white blood cell count. - Condition is Stable. - Discharge Instructions: Fever, Adult, Urinary Tract Infection, Adult, Weakness, Urinary Tract Infection, Adult, [id number], Weakness, [id number], Fever, Adult, [id number]. - Prescriptions for Cipro 500 mg Oral Tablet - take 1 tablet by ORAL route every 12 hours for 7 days; 14 tablet. - Medication Reconciliation Form, Thank You Letter, Antibiotic Education, Prescription Opioid Use form. - Follow up: Private Physician; When: 2 - 3 days; Reason: Recheck today's complaints, Continuance of care, Re-evaluation by your physician. - Problem is new. - Symptoms have improved. Signatures: Dispatcher [employer] EDMS Dae Ambrose MD MD cha Smirch, Shelby, RN RN ss Leigh Ayoub RN RN ll1 Corrections: (The following items were deleted from the chart) 18:40 18:39 05/14/2020 18:39 Discharged to Home. Impression: Fever, unspecified - sp [facility] influenza/ pneumovac immunizations; Headache; Malaise and fatigue; Urinary tract infection, site not specified. Condition is Stable. Discharge Instructions: Fever, Adult, Weakness, Weakness, [id number], Fever, Adult, [id number], Urinary Tract Infection, Adult, Urinary Tract Infection, Adult, [id number]. Prescriptions for Cipro 500 mg Oral Tablet - take 1 tablet by ORAL route every 12 hours for 7 days; 14 tablet. and Forms are Medication Reconciliation Form, Thank You Letter, Antibiotic Education, Prescription Opioid Use. Follow up: Private Physician; When: 2 - 3 days; Reason: Recheck today's complaints, Continuance of care, Re-evaluation by your physician. Problem is new. Symptoms have improved. [facility] 19:07 18:40 05/14/2020 18:39 Discharged to Home. Impression: Fever, unspecified - sp ss influenza/ pneumovac immunizations; Headache; Malaise and fatigue; Urinary tract infection, site not specified; Pain in left arm - sp immumizations, local reaction; Elevated white blood cell count. Condition is Stable. Discharge Instructions: Fever, Adult, Weakness, Weakness, [id number], Fever, Adult, [id number], Urinary Tract Infection, Adult, Urinary Tract Infection, Adult, [id number]. Prescriptions for Cipro 500 mg Oral Tablet - take 1 tablet by ORAL route every 12 hours for 7 days; 14 tablet. and Forms are Medication Reconciliation Form, Thank You Letter, Antibiotic Education, Prescription Opioid Use. Follow up: Private Physician; When: 2 - 3 days; Reason: Recheck today's complaints, Continuance of care, Re-evaluation by your physician. Problem is new. Symptoms have improved. aisha
[2020-05-14] MEDS ORDERED: IBUPROFEN 400 MG TAB ONE (19:07)
[2020-05-14 19:16] VITALS: O2SAT 100
[2020-05-14 19:20] VITALS: BP 124/80; TEMP 100
== END 2020-05-14 19:07 | disposition home or self-care (01) ==
LOC: ER 15:45
DX: R51.9 Headache, unspecified (principal); N39.0 Urinary tract infection, site not specified; R53.81 Other malaise; R53.83 Other fatigue; D72.829 Elevated white blood cell count, unspecified; M79.602 Pain in left arm; I10 Essential (primary) hypertension; Z90.13 Acquired absence of bilateral breasts and nipples; Z88.5 Allergy status to narcotic agent
CPT/HCPCS: 96361; 87040 ×2; 87088; 85025; 87086; 36415; 81003; 80053; 84145; 70450; 71046; 96374; 99284; J0696; J7030